=== PATIENT | female | born 1965 | race Caucasian/White ===

== ENCOUNTER 2017-05-14 21:53 | Emergency (ER) | payer OTHER ==
--- NOTE | ~2017-05-14 | CR252 ---
[facility] A Service of [facility] & [facility] / [facility] RADIOLOGY TEXT RESULTS PATIENT: JEANNIE COATS LOCATION: SED : 65 UNIT #: [id number] AGE: [address]: Chuy Navas MD SEX: F ORDER DR: [id number] [address] [id number] E MR#: [id number] Acc #: [id number] NAME: JEANNIE COATS : 1965 SEX: F STUDY DATE/TIME: 05/14/2017 23:20 UNIT: SED ROOM: STUDY DESCRIPTION: CR Tibia and Fibula 2 Views Lt Attending Physician: Chuy Navas M.D. Ordering Physician: Chuy Navas M.D. Primary Care Physician: [facility] MEDICAL IMAGING REPORT This report is preliminary unless electronic signature is present. EXAM Left tibia and fibula INDICATIONS Slipped and fell with trauma to tibia and fibula on Friday. Continued pain. FINDINGS There is no evidence of fracture, dislocation, or radiopaque foreign body. IMPRESSION Normal tibia and fibula. Dictated by... Peterson Kessler M.D. THIS IS AN ELECTRONICALLY VERIFIED REPORT Peterson Kessler M.D. at 05/15/2017 5:54 AM DALIA/betsy TD: 05/15/2017 00:03 JOB #: [id number] MEDICAL IMAGING REPORT Page 1 of 1
[~2017-05-14 21:53] MED LIST: ADVAIR 500-501 EACH IH; ALBUTEROL17 GM INH; ALBUTEROL25 GM; ALLEGRA180 MG PO; AMITRYPTYLINE PO; ANXIETY MED; ASPIRIN81 MG PO; BACTRIM DS TABL1 TA1 PO; BENTYL20 MG PO; CARDURA1 M1 PO; CLONIDINE HCL0.1 MG PO; CLOPIDOGREL75 MG PO; COMBIVENT RESPIM4 GM IH; DICLOFENAC; DIFLUCAN100 MG PO; DOCU SOFT100 M1 PO; FERRO-TIME325 MG PO; FIORICET 50-321 EACH PO; FLEXERIL10 MG PO; GABAPENTIN300 MG PO; GABAPENTIN400 M2 PO; HCTZ; HYDRALAZINE HCL10 MG PO; HYDRALAZINE HCL25 MG PO; HYDRALAZINE HCL50 MG PO; HYDROCHLOROTHIA25 MG PO; IBUPROFEN400 MG PO; IBUPROFEN800 MG PO; IMITREX50 MG PO; LANTUS SOLOSTAR3 ML SUBQ; LEVEMIR FL100 UNIT/1 SQ; LEVEMIR SUBQ; LEVEMIR100 U/ML SUBQ; LEVIMIR; LIPITOR20 MG PO; LOMOTIL TABLET1 TAB PO; METFORMIN HCL500 M1 PO; METOPROLOL TAR25 MG PO; MOBIC15 MG PO; NORVASC; NORVASC PO; NORVASC10 MG PO; NOVOLOG FL100 UNIT/1 SUBQ; NOVOLOG100 U/M3; NOVOLOG100 UNITS/; PAXIL40 MG PO; PERCOCET5/325 PO; PHENERGAN25 M1 DOB; PHENERGAN25 M1 PO; PHENERGAN25 MG PO; PLAVIX PO; PREMPRO 0.1 TAB 0.62 PO; PRINIVIL40 MG PO; PROPRANOLOL HCL80 MG PO; PYRIDIUM PO; ROBAXIN; SYMBICORT INH; TANZEUM30 MG/0.5 SQ; TOUJEO SOL300 UNIT/1 SQ; TYLENOL #3 PO; ULTRACET TABLET1 TAB PO; ULTRAM PO; VITAMIN C500 M2 PO; VOLTAREN50 MG PO; VOLTAREN75 MG PO; ZESTORETIC PO; ZESTRIL2.5 MG; ZESTRIL40 MG PO; ZOFRAN ODT4 MG/UDTAB PO; ZYRTEC10 M1 PO
== END 2017-05-15 00:37 | disposition home or self-care (01) ==
LOC: SED 21:53
DX: S80.12XA Contusion of left lower leg, initial encounter (principal); J44.9 Chronic obstructive pulmonary disease, unspecified; Z86.73 Personal history of transient ischemic attack (TIA), and cerebral infarction without residual deficits; W01.0XXA Fall on same level from slipping, tripping and stumbling without subsequent striking against object, initial encounter; Y92.69 Other specified industrial and construction area as the place of occurrence of the external cause
CPT/HCPCS: 73590; 99283